=== PATIENT | male | born 1980 | race Caucasian/White ===

== ENCOUNTER 2020-07-04 19:46 | Emergency (ER) | payer OTHER ==
[~2020-07-04] VITALS: Ht 180.3 cm; Wt 84.4 kg
[2020-07-04] MEDS ORDERED: NORCO, ANEXSIA 5/325MG TABLET (HYDROcodone/ACETAMINOPHEN) PO ONE (21:30)
[2020-07-04] MEDS ORDERED: BACT800T5 PO (21:30)
[2020-07-04] MEDS ORDERED: LIDO1CRE2 TOP (21:30)
[2020-07-04] MEDS ORDERED: BACTRIM 160MG/800MG DS TAB PO ONE (21:30)
[2020-07-04 21:48] VITALS: BP 147/85
== END 2020-07-05 00:01 | disposition home or self-care (01) ==
LOC: M ED 19:46
DX: L02.31 Cutaneous abscess of buttock (principal); L03.317 Cellulitis of buttock; F17.200 Nicotine dependence, unspecified, uncomplicated